=== PATIENT | female | born 1945 | race Caucasian/White ===

== ENCOUNTER → 2019-08-16 | Outpatient (CLI) | payer MEDICARE ==
--- NOTE | 2019-08-16 11:48 | Diagnostic Imaging Report ---
MRI of the right hip without contrast. History: Hip pain. Decreased range of motion. Bursitis. Pain not responding to conservative management Technique: Multiplanar multisequence MRI of the hip without contrast. Comparison: None Findings: No acute fracture, subluxation or avascular necrosis. Scattered degenerative change about the visualized lower lumbar spine and pelvis. The urinary bladder and remainder of the visualized pelvic structures are grossly unremarkable. Mild degenerative arthrosis in the right hip joint with thinning of the articular cartilage at the superior lateral acetabulum and adjacent femoral head. No underlying bone marrow edema. Degeneration and fraying of the labrum. The remainder of the visualized ligaments and tendons about the right hip are intact. Physiologic amount of fluid in the right hip joint. 2 cm nonaggressive appearing lesion in the right intertrochanteric region could be due to a bone cyst. Mild right sided insertional hamstring tendinosis. Mild amount of soft tissue edema adjacent to the right greater trochanter likely due to mild trochanteric bursitis. The visualized muscles are otherwise normal in size, signal intensity and morphology. The visualized neurovascular bundles are intact. Impression: Findings likely due to mild right-sided greater trochanteric bursitis. Mild right sided insertional hamstring tendinosis. Mild degenerative arthrosis in the right hip joint. Signed by: Dr. Gildardo Oro M.D. on 08/16/2019 11:44 AM
--- NOTE | 2019-08-16 11:51 | Diagnostic Imaging Report ---
MRI of the left hip without contrast. History: Hip pain. Decreased range of motion. Bursitis. Pain not responding to conservative management Technique: Multiplanar multisequence MRI of the hip without contrast. Comparison: None Findings: No acute fracture, subluxation or avascular necrosis. Scattered degenerative change about the visualized lower lumbar spine and pelvis. The urinary bladder and remainder of the visualized pelvic structures are grossly unremarkable. Mild degenerative arthrosis in the left hip joint with thinning of the articular cartilage at the superior lateral acetabulum and adjacent femoral head. No underlying bone marrow edema. Degeneration and fraying of the labrum. The remainder of the visualized ligaments and tendons about the right hip are intact. Physiologic amount of fluid in the right hip joint. Mild left sided insertional hamstring tendinosis. The visualized muscles are otherwise normal in size, signal intensity and morphology. The visualized neurovascular bundles are intact. Impression: Mild left sided insertional hamstring tendinosis. Mild degenerative arthrosis in the left hip joint. Signed by: Dr. Gildardo Oro M.D. on 08/16/2019 11:48 AM
--- NOTE | 2019-08-19 10:34 | Diagnostic Imaging Report ---
Exam: Bone mineral density study. History: Degenerative joint disease, osteopenia Comparison: None Discussion: Evaluation of the left hip and lumbar spine was performed. The study is technically adequate. The patient's fracture risk is compared to an age-matched control. The patient denies prior surgery/fracture of the spine, hips or forearm. Left hip femoral neck bone mineral density: 0.570 g/cm2, T-score is -2.5, Z-score is -0.6. Left hip total bone mineral density: 0.646 g/cm2, T-score is -2.4, Z-score is -0.8. Lumbar spine total bone mineral density: 1.036 gm/cm2, T-score is -0.1, Z-score is 2.2. No previous comparison. Impression: 1. Bone mineralization by WHO Classification of the left hip is osteoporosis, the fracture risk is increased. 2. Bone mineralization by WHO Classification of the lumbar spine is normal, the fracture risk is not increased. Recommendations: Medical evaluation for secondary causes of low bone mineral density may be appropriate. Correlate clinically for the necessity and timing of the next bone mineral density study. Signed by: Dr. Santo Nguyen MD on 08/19/2019 10:31 AM
== END ==
LOC: MRI 09:47
PROVIDERS: ATTEND Family Medicine
DX: Z12.31 Encounter for screening mammogram for malignant neoplasm of breast (principal); M85.80 Other specified disorders of bone density and structure, unspecified site; M16.11 Unilateral primary osteoarthritis, right hip
CPT/HCPCS: 77067; 77080

== ENCOUNTER 2019-09-26 10:52 | Emergency (ER) | payer MEDICARE ==
[~2019-09-26] VITALS: Ht 167.6 cm; Wt 60.3 kg
[2019-09-26] MEDS ORDERED: METHYLPREDNISOLONE SOD SUCC 125 MG/2ML VIAL IM ONE (11:15)
[2019-09-26] MEDS ORDERED: KETOROLAC TROMETHAMINE 60 MG/2 ML VIAL IM ONE (11:15)
--- NOTE | 2019-09-26 11:57 | NUR ---
STATES SHE WANTS TO FOLLOW UP WITH PCP DOES NOT WANT TO WAIT ANY LONGER MD NOTIFIED
--- NOTE | 2019-09-26 12:09 | Emergency Department Note ---
History of Present Illnes History of Present Illness Chief Complaint: Back Pain History of Present Illness This is a 73 year old female arrived to the ED with complaints of back pain- h/o laminectomy. Patient denies any numbness or weakness in her lower extremities. Patient she is ambulatory although with some pain in her back. Patient requesting an MRI the ED, and then stated she is fine to go home with some pain medication. Historian: Patient Arrival Mode: Car Onset (how long ago): week(s) Radiation: Reports back Severity: mild Duration (how long): day(s) Timing of current episode: constant Progression: unchanged Chronicity: recurrent Context: Denies trauma/injury Relieving factors: none Exacerbating factors: none Past Medical/Family History Physician Review I have reviewed the patient's past medical and family history. Any updates have been documented here. Past Medical History Recent Fever: No Clinical Suspicion of Infectio: No New/Unexplained Change in Ment: No Other Medical History: RESTLESS LEG BACK PAIN Past Surgical History: Hysterectomy, Back Surgery Other Surgery: COLON REMOVED Social History Physically hurt or threatened: No Review of Systems Review of Systems Constitutional: Reports no symptoms EENTM: Reports no symptoms Cardiovascular: Reports no symptoms Respiratory: Reports no symptoms Gastrointestinal: Reports no symptoms Genitourinary: Reports no symptoms Musculoskeletal: Reports as per HPI, Reports back pain Integumentary: Reports no symptoms Neurological: Reports no symptoms Psychological: Reports no symptoms Endocrine: Reports no symptoms Hematological/Lymphatic: Reports no symptoms Physical Exam Related Data Allergies: Coded Allergies: No Known Allergies (Unverified , 09/26/19) Triage Vital Signs Vital Signs Date Time Temp Pulse Resp B/P (MAP) Pulse Ox O2 Delivery O2 Flow Rate FiO2 09/26/19 11:04 98.1 71 16 122/63 97 Room Air Vital signs reviewed: Yes Physical Exam CONSTITUTIONAL Constitutional: Present well-developed, Present well-nourished HENT HENT: Present normocephalic, Present atraumatic, Present oropharynx clear/moist, Present nose normal HENT L/R: Present left ext ear normal, Present right ext ear normal EYES Eyes: Reports PERRL, Reports conjunctivae normal NECK Neck: Present ROM normal PULMONARY Pulmonary: Present effort normal, Present breath sounds normal CARDIOVASCULAR Cardiovascular: Present regular rhythm, Present heart sounds normal, Present capillary refill normal, Present normal rate GASTROINTESTINAL Abdominal: Present soft, Present nontender, Present bowel sounds normal GENITOURINARY Genitourinary: Present exam deferred SKIN Skin: Present warm, Present dry MUSCULOSKELETAL Musculoskeletal: Present tenderness (tenderness over lateral aspects of L3-L5, no midline lumbar tenderness, normal motor and sensation to lower extremities) NEUROLOGICAL Neurological: Present alert, Present oriented x 3, Present no gross motor or sensory deficits; Absent sensory deficit, Absent abnormal coordination, Absent abnormal gait, Absent weakness PSYCHOLOGICAL Psychological: Present mood/affect normal, Present judgement normal Assessment & Plan Medical Decision Making MDM 73-year-old well-appearing female arrived to the ED with complaints of back pain, requesting an MRI. Patient states patient's neurosurgeon is no longer in her network and she was not able to follow-up. CT lumbar spine ordered, however, patient states she wishes to be discharged instead with pain medication. Patient got a dose of Solu-Medrol and ketorolac Assessment & Plan Final Impression: (1) Back pain Depart Disposition: HOME, SELF-CARE Last Vital Signs Date Time Temp Pulse Resp B/P (MAP) Pulse Ox O2 Delivery O2 Flow Rate FiO2 09/26/19 11:04 98.1 71 16 122/63 97 Room Air Medications in the ED Methylprednisolone Sodium Succinate 125 mg ONCE ONCE IM ; Start 09/26/19 at 11:15; Stop 09/26/19 at 11:16; Status DC Ketorolac Tromethamine 60 mg ONCE ONCE IM ; Start 09/26/19 at 11:15; Stop 09/25 at 11:44; Status DC HAO BACH DO Sep 26, 2019 12:09
== END 2019-09-26 12:00 | disposition home or self-care (01) ==
LOC: ER 11:59
DX: M54.5 Low back pain (principal); G25.81 Restless legs syndrome
CPT/HCPCS: 99282; J1885; J2930

== ENCOUNTER → 2019-10-07 | Outpatient (CLI) | payer SELFPAY ==
--- NOTE | 2019-10-07 14:24 | Diagnostic Imaging Report ---
MRI SPINE LUMBAR WO HISTORY: Low back and right hip and leg pain COMPARISON: None. TECHNIQUE: Sagittal T1, sagittal T2, sagittal STIR, axial T2, coronal T2, and axial proton density weighted images of the lumbar spine were obtained without contrast. Motion artifacts obscure some details. DISCUSSION: Number of non-rib bearing lumbar vertebral bodies: 5. Alignment: Normal lordosis. Thoracolumbar levoscoliosis is centered at L2-L3. Vertebrae: No fractures, infection or neoplasm. Conus medullaris: Normal, ends at T12-L1. Cauda equina: No masses or arachnoiditis. Posterior paraspinal muscles: Mild lumbar paraspinal muscle edema is present, right greater than left. Posterior incision changes are noted. Soft tissues: Small nodular bilateral T2 hyperintense renal lesions are likely cysts. Small nodular T2 hyperintense lesion in the posterior right hepatic lobe also may be a cyst. Mild to moderate multilevel disc degeneration is most prominent at L1-L2. There are nonspecific mild inflammatory endplate changes bilaterally at L1-L2 and on the right at L2-L3. T12-L1: Disc bulge without significant canal or foraminal stenosis. L1-L2: There is mild right lateral listhesis of L1 on L2. Mild canal stenosis due to disc bulge and ligamentum flavum thickening. Mild bilateral foraminal stenoses due to disc bulge and facet arthrosis. L2-L3: There is mild right lateral listhesis of L2 on L3. Moderate canal stenosis due to disc bulge and ligamentum flavum thickening. The right lateral recess is effaced. Moderate to severe right and mild left foraminal stenoses due to disc bulge and facet arthrosis. Small bilateral facet effusions are present. L3-L4: There is mild left lateral listhesis of L3 on L4. Moderate to severe canal stenosis due to disc bulge and ligamentum flavum thickening. Both lateral recesses are effaced. Moderate to severe right and mild to moderate left foraminal stenoses due to disc bulge and facet arthrosis. Small bilateral facet effusions are present. L4-L5: There is mild left lateral listhesis of L4 on L5. Grade 1 anterolisthesis of L4 on L5 is due to advanced bilateral facet arthrosis; small bilateral facet effusions associated with small posterior synovial cysts. Laminectomy changes are present. Persistent moderate canal stenosis, just above the laminectomy level, due to uncovered disc bulge and ligamentum flavum thickening. Both lateral recesses are effaced. Mild bilateral foraminal stenoses due to uncovered disc bulge and facet arthrosis. L5-S1: Mild canal stenosis due to disc bulge and ligamentum flavum thickening. Mild bilateral foraminal stenoses due to disc bulge and facet arthrosis. IMPRESSION: 1. Mild to moderate multilevel disc degeneration, most prominent at L1-L2, with associated thoracolumbar levoscoliosis. Nonspecific mild inflammatory endplate changes at L1-L2 and L2-L3, eccentric to the right. 2. Grade 1 anterolisthesis of L4 on L5 due to advanced bilateral facet arthrosis. 3. Laminectomy changes at L4-L5. 4. Multilevel degenerative canal stenoses - moderate to severe at L3-L4; moderate at L2-L3 and L4-L5. 5. Multilevel bilateral degenerative foraminal stenoses - moderate to severe on the right at L2-L3 and on the right at L3-L4. Signed by: Dr. Yony Hopper M.D. on 10/07/2019 2:20 PM
== END ==
LOC: MRI 13:02
PROVIDERS: ATTEND Family Medicine
DX: M54.5 Low back pain (principal); M54.16 Radiculopathy, lumbar region
CPT/HCPCS: 72148

== ENCOUNTER → 2021-08-18 | Outpatient (CLI) | payer MEDICARE | LOC: MAMMO 10:06 | PROVIDERS: ATTEND Family Medicine | DX: Z12.31 Encounter for screening mammogram for malignant neoplasm of breast (principal); M85.88 Other specified disorders of bone density and structure, other site | CPT/HCPCS: 77067; 77080 ==

== ENCOUNTER → 2024-09-02 | Outpatient (REF) | payer MEDICARE | LOC: DX 11:19 | PROVIDERS: ATTEND Family Medicine | DX: Z13.820 Encounter for screening for osteoporosis (principal); N95.9 Unspecified menopausal and perimenopausal disorder | CPT/HCPCS: 77080 ==

== ENCOUNTER → 2024-12-04 | Outpatient (REF) | payer MEDICARE | LOC: MAMMO 12:07 | PROVIDERS: ATTEND Family Medicine | DX: Z12.31 Encounter for screening mammogram for malignant neoplasm of breast (principal) | CPT/HCPCS: 77067 ==